=== PATIENT | female | born 1970 | race Caucasian/White ===

== ENCOUNTER 2022-12-22 07:18 | Emergency (ER) | payer BC ==
[2022-12-22] MEDS ORDERED: Ketorolac 30 MG/ML SDV IM STA (07:37)
[2022-12-22] MEDS ORDERED: Ondansetron 4 MG Tab.DIS PO ONE (07:37)
[2022-12-22] MEDS ORDERED: Morphine 4 MG/ML VIAL IM ONE (07:46)
[2022-12-22 08:10] LABS: ESTIMATED GFR 60 mL/min (>60)
[2022-12-22] MEDS ORDERED: hydrOXYzine HCl 50 MG/ML SDV IM ONE (08:37)
[2022-12-22] MEDS ORDERED: Acetaminophen/oxyCODONE 325-5 MG Tab PO STA (08:37)
== END 2022-12-22 09:41 | disposition home or self-care (01) ==
LOC: FB.ED 07:18
DX: N20.0 Calculus of kidney (principal); E86.0 Dehydration; Z88.5 Allergy status to narcotic agent; Z88.0 Allergy status to penicillin; Z88.2 Allergy status to sulfonamides; Z88.8 Allergy status to other drugs, medicaments and biological substances; Z79.899 Other long term (current) drug therapy; Z90.49 Acquired absence of other specified parts of digestive tract; Z87.891 Personal history of nicotine dependence
CPT/HCPCS: 36415; 74176; 80048; 81001; 85025; 96372; 99284; A9270; J2270; J3410; Q0162